=== PATIENT | female | born 1995 | race Caucasian/White ===

== ENCOUNTER 2022-08-25 12:28 | Emergency (ER) | payer OTHER, SELFPAY ==
--- NOTE | ~2022-08-25 | XR_ITS ---
EXAMINATION: XR foot RT min 3V DATE: 08/25/2022 13:29 INDICATION: Fifth metatarsal pain TECHNIQUE: Dorsoplantar, lateral, and 2 oblique views of the right foot were obtained. COMPARISON: None. FINDINGS: Ankle fractures are described on the ankle radiograph report. No fracture, dislocation, or subluxation identified in the foot. IMPRESSION: 1. No acute osseous abnormality of the foot. Ankle fractures described separately. Reviewed, dictated and finalized at location A. IMPRESSION: 1. No acute osseous abnormality of the foot. Ankle fractures described separate ly.
--- NOTE | ~2022-08-25 | XR_ITS ---
EXAMINATION: XR ankle RT min 3V INDICATION: Right ankle pain, initial encounter TECHNIQUE: Four views of the right ankle are obtained. COMPARISON: 05/16/2011 FINDINGS: There is an acute, traumatic, closed, oblique fracture of the distal fibula above the tibia l plafond. There is widening of the distal tibiofibular joint with an avulsion fracture seen situated between the distal tibia and fibula. There are an oblique fracture of the medial malleolus. There is widening of the tibiotalar joint between the medial malleolus and the talus. There appears to be a p osterior malleolus fracture tibia. Soft tissue swelling surrounds the fractures. IMPRESSION: 1. Probable trimalleolar fracture/dislocation ankle. Reviewed, dictated and finalized at location A.
[2022-08-25 12:31] VITALS: BP 146/89; PULSE 120; RESP 16; TEMP 36.4; O2SAT 100
[2022-08-25] MEDS: HYDROcodone/acetaminophen (*CRX) 5-325 MG TABLET 1 TAB PO (13:32)
--- NOTE | 2022-08-25 14:30 | ED.LOWEXIN ---
HPI - Extremity Injury (Lower) General Chief Complaint: Extremity Injury, Lower Stated Complaint: right ankle pain Time Seen by Provider: 08/25/22 12:39 History of Present Illness HPI Narrative: Patient is a 27-year-old female who presents ER with right ankle pain. She stepped off a curb and twisted her ankle. Unable to bear weight since then last night. Has developed some tingling. No additional injury. Related Data Allergies Allergy/AdvReac Type Severity Reaction Status Date / Time No Known Allergies Allergy Mild Verified 08/25/22 12:29 Review of Systems Musculoskeletal: Musculoskeletal: Denies myalgias, Reports arthralgias and Reports joint swelling Integumentary/Breasts: Skin/Breast: Denies rash and Denies skin ulcer Comments: Abrasion Neurologic: Denies syncope, Denies numbness and Denies weakness Comments: Right foot tingling PMFSH Past Medical History Medical History (Updated 08/25/22 @ 14:31 by Luis Lock MD) Anxiety BMI 32.0-32.9,adult Encounter to establish care Tension type headache Vitamin D deficiency Family History Family History (Updated 02/05/22 @ 10:49 by DOMINICK Moran) Father Hypertension Grandparent Hypertension Sibling Depression Anxiety Other Cerebrovascular accident Social History Social History (Updated 02/05/22 @ 11:04 by DOMINICK Moran) Smoking status: Never smoker Alcohol intake: current Drinks per week: 2 Alcohol use details: Seltzers every other weekend Substance use: current Substance use type: marijuana Exam Narrative: GENERAL: Well-appearing, well-nourished, and in no acute distress. HEAD: Normocephalic, atraumatic. HEART: Regular rate and rhythm. Normal peripheral pulses. EXTREMITIES: Swelling of the right ankle laterally and medially with tenderness with palpation limited range of motion due to pain. Also tenderness to the right fifth metatarsal. Pulses intact. Normal sharp and soft touch sensation of the right foot. Normal range of motion at the knee on the right side where there is overlying abrasion and no tenderness over the fibular head. SKIN: Warm, dry, no rash. NEURO: Alert and oriented x3. PSYCH: Normal mood and affect. Course Course Emergency Course: Patient resting comfortably. Informed of results. Splinted. Discussed case with on-call orthopedic surgery who will see patient. Nonweightbearing with crutches. Vital Signs Vital signs: Vital Signs Temperature 97.6 F 08/25/22 12:31 Pulse Rate 120 H 08/25/22 12:31 Respiratory Rate 16 08/25/22 12:31 Blood Pressure 146/89 H 08/25/22 12:31 Pulse Oximetry 100 08/25/22 12:31 Oxygen Delivery Room Air 08/25/22 12:31 Temperature 97.6 F 08/25/22 12:31 Pulse Rate 120 H 08/25/22 12:31 Respiratory Rate 16 08/25/22 12:31 Blood Pressure 146/89 H 08/25/22 12:31 Pulse Oximetry 100 08/25/22 12:31 Oxygen Delivery Room Air 08/25/22 12:31 MDM - Extremity Injury (Lower) Imaging Data Radiologist's impression: ITS Impressions Ankle X-Ray 08/25/22 13:10 IMPRESSION: 1. Probable trimalleolar fracture/dislocation ankle. Foot X-Ray 08/25/22 13:31 IMPRESSION: 1. No acute osseous abnormality of the foot. Ankle fractures described separately. Discharge Plan Discharge Clinical Impression: Closed trimalleolar fracture of right ankle Patient Disposition: Home, Self-Care Condition: Stable Instructions: Ankle Fracture (ED) Additional Instructions: Return the ER if your foot is cold and blue, you have increased pain, you have additional concerns. Elevate your leg. Follow-up with orthopedic surgery as you will likely require an operation. Take Tylenol with hydrocodone for pain. Prescriptions: New hydrocodone-acetaminophen 5-325 mg tablet 1 tablet PO Q6H PRN (Reason: pain) Qty: 20 0RF No Action venlafaxine 150 mg tablet extended release 24hr 150 mg PO DAILY Qty: 30 11RF ergoc
== END 2022-08-25 14:47 | disposition home or self-care (01) ==
PROVIDERS: Emergency Provider Emergency Medicine; PCP Nurse Practitioner Family
DX: S82.851A Displaced trimalleolar fracture of right lower leg, initial encounter for closed fracture (principal); F41.9 Anxiety disorder, unspecified; X50.0XXA Overexertion from strenuous movement or load, initial encounter
CPT/HCPCS: 29515; 73610; 73630; 99284; A9270

== ENCOUNTER 2022-08-30 00:54 | Day surgery (SDC) | payer OTHER, SELFPAY ==
[2022-08-27 11:29] VITALS: BMI 30.9
--- NOTE | 2022-08-27 11:35 | PC.NURSE ---
Report to the Outpatient Waiting Room, entrance under the green pavilion located off [facility], at time 0830 on date 08/30/22. Planned Procedure Time: 1030. Time changes happen often and if your time is changed the preop area will call you the afternoon before. - You and your visitor will be asked to self-screen and do not enter if you have any COVID symptoms. - A mask is optional within the hospital at this time. Patients may have clear liquids (water, carbonated beverages, clear teas, apple juice) until 3 hours prior to surgery with a maximum of 20 ounces. - No food from midnight until time of surgery Take the following medications with a SIP of water the morning of surgery: VENLAFAXINE, PAIN PILL IF NEEDED DO NOT STOP ANY OF YOUR OTHER PRESCRIPTION MEDICATIONS PRIOR TO SURGERY EXCEPT THE FOLLOWING Medications to discontinue per physician: VITAMIN Date to take last dose: NO MORE UNTIL AFTER SURGERY Please no make-up, nail gabonese, hairspray, perfume, deodorant, or body powder the day of surgery. No jewelry (including any body piercings) or valuables the day of surgery, leave them at home. Please take a shower or bath the night before, or the morning of, surgery with an antibacterial soap. Wear comfortable, loose fitting clothing. - Jewelry must be removed prior to entering the operating room. Rings and piercings that are not removed may be cut off. - The hospital will not accept responsibility for valuables. - Please leave all valuables, including medications, at home the day of surgery. If you are going home after surgery, a licensed ready mix truck driver must drive you home. - NO public transportation without another adult if you receive anesthesia. - We recommend that an adult stay with you for 24 hours following discharge. - We also recommend that you do not drive, make important decision, drink alcoholic beverages, or take any drugs that were not prescribed by your health care provider for at least 24 hours after your discharge time. Follow any additional instructions given to you from your surgeon. If you or anyone in your household have experienced Covid symptoms in the past week, please notify your surgeon or the nurse liaison at the phone number below for possible testing. Telephone instructions given to PT - PATRICIA MCCOY and asked if any additional questions and then verbalized understanding. Patient advised to call surgeon office or pre surgery nurse liaison [phone] if any additional questions.
[2022-08-30] VITALS (9 sets, daily range): BP systolic 128–161; BP diastolic 74–103; PULSE 86–115; RESP 14–16; TEMP 36–36.5; O2SAT 93–99
--- NOTE | ~2022-08-30 | XR_ITS ---
EXAMINATION: XR surgery orthopedic DATE: 08/30/2022 13:12 INDICATION: ORIF right ankle fracture TECHNIQUE: 3 fluoroscopic images of the right ankle were obtained during procedure performed by Dr. Aldo li. Radiologist was not present for the imaging or procedure. The amount of fluoroscopy time used during this procedure was 10.1 minutes. COMPARISON: 08/29/2022 FINDINGS: Interval open reduction internal fixation of the right ankle bimalleolar fracture. The fibular fractu re is fixed with interfragmentary screw and lateral plate and screws. The medial malleolar fractures fixed with a pair of cannulated lag screws. Finally there were small metallic buttons at the medial a nd lateral sides of a lucent tunnel extending across the metaphyseal regions of the distal tibia and fibula for a tightrope type syndesmotic fixation. Alignment appears near-anatomic with a congruent an kle mortise. No other fractures identified. Joint spaces appear normal. Expected small amount of post operative gas in the soft tissues and ankle and subtalar joint spaces. IMPRESSION: 1. Near-anatomic alignment post internal fixation of a bimalleolar fracture of the right ankle which includes a distal tibia fibular syndesmotic fixation. Reviewed, dictated and finalized at location A.
--- NOTE | 2022-08-30 09:25 | P.PNAN_ITS ---
Anes - Initial Pre Proc Eval Procedure: Operation Date: 08/30/22 10:30 Proposed Procedures p Open Reduction Internal Fixation Right Ankle - Mj Clement MD Date/Time: 08/30/22 09:25 Surgeon: Mj Clement MD Pre Op Diagnosis: right ankle fx Patient Data Age: 27 Gender: F Height: 1.63 m Weight: 81.65 kg Allergies Allergy/AdvReac Type Severity Reaction Status Date / Time No Known Allergies Allergy Mild Verified 08/29/22 12:55 Home Medications Medication Instructions Recorded Confirmed Type ergocalciferol (vitamin D2) 1,250 1,250 mcg PO WEEKLY #12 caps 06/05/22 08/27/22 Rx mcg (50,000 unit) capsule venlafaxine 150 mg tablet,extended 150 mg PO DAILY #30 tabs 06/05/22 08/27/22 Rx release 24 hr hydrocodone 5 mg-acetaminophen 325 1 tablet PO Q6H PRN pain #20 tabs 08/25/22 08/27/22 Rx mg tablet Patient hx anesthesia problems: none Family hx anesthesia problems: none Results Review: All pre-operative results and documents have been reviewed as part of the pre- operative evaluation. [facility] Past Medical History Medical History Anxiety BMI 32.0-32.9,adult Encounter to establish care Tension type headache Vitamin D deficiency Surgical History Surgical History (Updated 08/30/22 @ 09:25 by Zachery Clements MD) S/P wisdom tooth extraction Family History Family History Father Hypertension Grandparent Hypertension Sibling Depression Anxiety Other Cerebrovascular accident Social History Social History (Updated 08/29/22 @ 13:01 by Angi Benson MA) Smoking status: Never smoker Alcohol intake: current Drinks per week: 5 Alcohol use details: Seltzers every other weekend Substance use: current Substance use type: marijuana Living arrangements: with family Occupation/Education: occupation 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 Informed Consent: The patient's anesthetic plan and its attendant risks and benefits were discussed with the patient/family/POA. Questions were solicited and answers provided to the satisfaction of the patient/family/POA.
[2022-08-30] MEDS: ACETAMINOPHEN 500 MG TABLET 1000 MG PO (10:00)
[2022-08-30] MEDS: CELECOXIB 200 MG CAPSULE PO (10:00)
[2022-08-30] MEDS: LACTATED RINGERS 1,000 ML 30 ML IV CONT ×2 (10:00→13:39)
--- NOTE | 2022-08-30 10:59 | WPDHPUPDATE1 ---
History and Physical Update Update Date/Time: 08/30/22 10:59 History and Physical has been reviewed, including an updated exam of the patient. There are NO changes in the patient's condition. Risks, benefits, and alternatives have been discussed and questions answered. Patient agrees to proceed with procedure.
--- NOTE | 2022-08-30 11:11 | WPDANESPNB ---
Anes - Peripheral Nerve Block Date/Time: 08/30/22 11:11 I have discussed with the patient/family/POA the placement of a peripheral nerve block for post-operative pain management, including associated risks, benefits, complications, and side effects. Alternative methods of post-operative analgesia were detailed. Questions were solicited and answers provided to the satisfaction of the patient/family/POA. Time-Out: A pre-procedural Time-Out was completed immediately before starting the procedure and confirmed: Patient Identification, Site, Procedure, Patient Position and the Availability of Requisite Equipment. Clinical Indications: Acute post-operative pain management requested by the operative surgeon. Nerve Block Insertion Note Anes-nerve block: posterior fossa sciatic right Patient position: supine Skin prep: chlorhexidine Needle: 22 gauge, stimulating, insulated echogenic needle. Needle length: 80 mm Technique: nerve stimulation lost at (mA) (0.35) Injectate: bupivacaine 0.5% with epi 5 mcg/ml (20cc no epi) and dexamethasone (mg) (4) Observations: tolerated well Complications: none Procedure start time:: 1105 Procedure end time:: 111
[2022-08-30] MEDS: ceFAZolin 2 GM/D5W 50 ML 2 GM/50 ML BAG IVPB (11:15)
[2022-08-30] MEDS: BUPivacaine HCL 0.5% PF 30 ML VIAL INFILTRATE (11:21)
--- NOTE | 2022-08-30 13:58 | W.PM.PROC2 ---
Procedure Note - Detailed Date of Procedure 08/30/22 Pre-op Diagnosis right bi malleolar ankle fx Post-op Diagnosis Same Procedure Performed ORIF RIGHT LATERAL MALLEOLUS FRACTURE Surgeon Mj Clement MD Anesthesia General Description of Procedure THE PATIENT WAS TAKEN TO THE OR AND PLACED UNDER GENERAL ANESTHESIA. THE RIGHT LOWER EXTREMITY WAS PREPPED AND DRAPED IN THE USUAL STERILE FASHION. THE SKIN AROUND THE ANKLE HAD NO SIGNIFICANT LESIONS OR BLISTERING. THE TOURNIQUET WAS INFLATED. AN INCISION WAS MADE OVER THE LATERAL ASPECT OF THE DISTAL LEG AND ANKLE DOWN THROUGH THE SUBCUTANEOUS TISSUES. THE SUPERFICIAL PERONEAL NERVE WAS IDENTIFIED AND PRESERVED. DISSECTION CONTINUED UNTIL THE FRACTURE WAS VISUALIZED. THE FRACTURED WAS REDUCED TO ANATOMIC POSITION AND A LAG SCREW WAS PLACED TO MAINTAIN REDUCTION. NEXT A 6 HOLE ARTHREX PLATE WAS PLACED BRIDGING THE FRACTURE FRACTURE FRAGMENTS AND ATTACHED WITH MULTIPLE SCREWS MAINTAINING THE FRACTURE IN ANATOMIC POSITION. THE ANKLE WAS VISUALIZED UNDER FLUOROSCOPY AND FOUND TO BE STABLE WITH HARDWARE IN GOOD POSITION AND FRACTURE REDUCED. NEXT THE MEDIAL MALLEOLUS WAS VISUALIZED AGAIN AND FOUND TO HAVE A NON DISPLACED FRACTURE THROUGH THE MAIN BODY. INCISION WAS MADE OVER THE MEDIAL MALLEOLUS AND 2 4.0 CANNULATED SCREWS MEASURING 40 MM WERE PLACED BRIDGING THE FRACTURE. C-ARM XRAYS SHOWED THAT THE HARDWARE WAS IN GOOD POSITION FLUOROSCOPY WAS PREFORMED SHOWING THAT THE SYNDESMOSIS WAS REDUCED. NEXT A TIGHT ROPE SYSTEM WAS USED FIXATION FOR THE SYNDESMOSIS WHICH WAS PLACED THROUGH THE PLATE UNTIL IT REACHED 3 CORTICES. THE TIGHT ROPE WAS TIGHTENED UNTIL IT WAS SECURED ON BOTH THE MEDIAL CORTEX OF THE TIBIA AND LATERAL EDGE OF THE PLATE. C-ARM XRAYS SHOWED GOOD POSITION OF HARDWARE AND FRACTURE FRAGMENTS. THE WOUND WAS WASHED WITH STERILE WATER. THE DEEP LAYERS WERE APPROXIMATED WITH 2-0 VICRYL, THE SUBCUTANEOUS LAYER WAS APPROXIMATED WITH 3-0 VICRYL AND THE SKIN WITH PAWEL. THE WOUNDS WERE WASHED AGAIN AND PLACED IN A STERILE DRESSING THEN A PLASTER ADRIÁN BOATENG SPLINT WAS APPLIED. THE PATIENT WAS EXTUBATED AND SENT TO THE RECOVERY ROOM. Estimated Blood Loss -10.0 Complications No immediate complications Condition Stable Disposition PACU
== END 2022-08-30 16:20 | disposition home health service (06) ==
PROVIDERS: PCP Nurse Practitioner Family; Visit Provider Orthopaedic Surgery
PROC: (CPT 27814; principal; 2022-08-30 10:30)
DX: S82.841A Displaced bimalleolar fracture of right lower leg, initial encounter for closed fracture (principal); G89.18 Other acute postprocedural pain; X50.0XXA Overexertion from strenuous movement or load, initial encounter; F41.9 Anxiety disorder, unspecified; E55.9 Vitamin D deficiency, unspecified; F12.90 Cannabis use, unspecified, uncomplicated; E66.9 Obesity, unspecified; Z68.32 Body mass index [BMI] 32.0-32.9, adult
CPT/HCPCS: 27814; 27829; 64445; 99199; A9270; C1713; C1769; J0690; J1100; J1170; J2250; J2405; J2704; J2765; J3010; J7120

== ENCOUNTER 2023-10-05 19:38 | Emergency (ER) | payer MEDICAID, SELFPAY ==
[2023-10-05 19:45] VITALS: BP 135/94; PULSE 82; RESP 16; TEMP 36.6; O2SAT 98
--- NOTE | 2023-10-05 19:46 | ED.WOUNDLAC ---
HPI - Wound/Laceration General Chief Complaint: Wound/Laceration Stated Complaint: Left Hand Laceration Time Seen by Provider: 10/05/23 19:46 Source: patient, RN notes reviewed and old records reviewed Mode of arrival: ambulatory Limitations: no limitations History of Present Illness HPI narrative: 28-year-old female presents to the [facility] with a laceration to the left hand at the base of the 2nd finger right near the webbing. States that she was cutting a piece so when she cut her hand. Bleeding is controlled. last tDap Patient tetanus UTD: Yes (01/30) Related Data Allergies Allergy/AdvReac Type Severity Reaction Status Date / Time No Known Allergies Allergy Mild Verified 10/05/23 19:38 Review of Systems Review of Systems: All systems reviewed & are unremarkable except as noted in HPI and below Constitutional: Constitutional: Reports no additional constitutional complaints Eyes: Eyes: Reports no additional eye complaints ENT: Reports system reviewed and no additional complaints, except as documented Cardiovascular: Cardiovascular: Reports no additional cardiovascular complaints, Denies chest pain and Denies dyspnea Respiratory: Respiratory: Reports no additional respiratory complaints, Denies chest congestion, Denies cough and Denies dyspnea Gastrointestinal: Gastrointestinal: Reports no additional gastrointestinal complaints, Denies abdominal pain, Denies nausea and Denies vomiting Musculoskeletal: Musculoskeletal: Reports no additional musculoskeletal complaints Integumentary/Breasts: Skin/Breast: Reports as per HPI Neurologic: Reports system reviewed and no additional complaints, except as documented Psychiatric: Psychiatric: Reports no additional psychiatric complaints Allergic/Immunologic: Allergic/Immunologic: Reports no additional allergic/immunologic complaints PMFSH Past Medical History Medical History Anxiety Bimalleolar fracture of right ankle BMI 32.0-32.9,adult Encounter to establish care Intractable right heel pain Pain of right heel Plantar fasciitis Right foot pain Tension type headache Vitamin D deficiency Surgical History Surgical History S/P wisdom tooth extraction Status post open reduction with internal fixation (ORIF) of fracture of ankle 08/30/2022 Family History Family History Father Hypertension Grandparent Hypertension Sibling Depression Anxiety Other Cerebrovascular accident Unknown Arthritis Heart disease Social History Social History Smoking status: Never smoker Alcohol intake: current Drinks per week: 5 Alcohol use details: Seltzers every other weekend Substance use: current Substance use type: marijuana Living arrangements: with family Occupation/Education: occupation 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 There is no relevant family history pertinent to the patient complaint. Exam Const: General: cooperative, healthy appearing, comfortable, no acute distress, well developed, alert and well nourished Nutritional Appearance: well nourished Orientation/consciousness: patient oriented x3 Limitations: no limitations HENMT: Head: normal to inspection Ears: hearing grossly normal bilaterally and external ears normal Face/Nose/Sinus: Normal external nose present, Normal nares present, Normal nasal mucous membranes and turbinates present, normal facial exam and face symmetric Face a
[2023-10-05] MEDS: LIDOCAINE HCL 1% LOCAL INJ 2 ML AMPUL 4 ML INFILTRATE (19:55)
== END 2023-10-05 20:20 | disposition home or self-care (01) ==
PROVIDERS: Emergency Provider Nurse Practitioner; PCP Nurse Practitioner Family
DX: S61.412A Laceration without foreign body of left hand, initial encounter (principal); W45.8XXA Other foreign body or object entering through skin, initial encounter
CPT/HCPCS: 12001; 99212; G0463

== ENCOUNTER 2023-10-15 08:23 | Emergency (ER) | payer OTHER, SELFPAY ==
[2023-10-15 08:33] VITALS: BP 137/85; PULSE 86; RESP 16; TEMP 36.4; O2SAT 98
--- NOTE | 2023-10-15 08:46 | ED.WOUNDLAC ---
HPI - Wound/Laceration General Chief Complaint: Wound/Laceration Stated Complaint: suture removal Time Seen by Provider: 10/15/23 08:46 Source: patient Mode of arrival: ambulatory Limitations: no limitations History of Present Illness HPI narrative: Jessika is a 28-year-old female patient presenting to the emergency room for suture removal to the left hand. She reports she had sutures placed here 10 days ago for a laceration in the webbing of her left hand between her thumb and index finger. No concerns at this time. Related Data Allergies Allergy/AdvReac Type Severity Reaction Status Date / Time No Known Allergies Allergy Mild Verified 10/05/23 19:38 Review of Systems Review of Systems: Pertinent positives per HPI. Patient denies any fever, chills, rash, headache, visual changes, dizziness, cough, runny nose, sore throat, shortness of breath, chest pain, palpitations, nausea, vomiting, diarrhea, constipation, abdominal pain, or any urinary issues. PMF Past Medical History Medical History Anxiety Bimalleolar fracture of right ankle BMI 32.0-32.9,adult Encounter to establish care Intractable right heel pain Pain of right heel Plantar fasciitis Right foot pain Tension type headache Vitamin D deficiency Surgical History Surgical History S/P wisdom tooth extraction Status post open reduction with internal fixation (ORIF) of fracture of ankle 08/30/2022 Family History Family History Father Hypertension Grandparent Hypertension Sibling Depression Anxiety Other Cerebrovascular accident Unknown Arthritis Heart disease Social History Social History Smoking status: Never smoker Alcohol intake: current Drinks per week: 5 Alcohol use details: Seltzers every other weekend Substance use: current Substance use type: marijuana Living arrangements: with family Occupation/Education: occupation 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 There is no relevant family history pertinent to the patient complaint. Exam Narrative: General: Well-developed, well nourished, in no apparent distress Head: Normocephalic, atraumatic. Cardio: Regular rate and rhythm, s1 and s2 normal, no murmur appreciated. Resp: Clear to auscultation bilaterally, no rhonchi, rales, wheezing or rubs. Integumentary: [place], warm, and dry, 3 sutures were removed and wound slightly dehisced. Will place Steri-Strips. Course Course Emergency Course: Portions of this record may have been created with voice recognition software. Level of Care: Express Care Visit Vital Signs Vital signs: Vital Signs Temperature 36.4 C 10/15/23 08:33 Pulse Rate 86 10/15/23 08:33 Respiratory Rate 16 10/15/23 08:33 Blood Pressure 137/85 10/15/23 08:33 Pulse Oximetry 98 10/15/23 08:33 Oxygen Delivery Room Air 10/15/23 08:33 Temperature 36.4 C 10/15/23 08:33 Pulse Rate 86 10/15/23 08:33 Respiratory Rate 16 10/15/23 08:33 Blood Pressure 137/85 10/15/23 08:33 Pulse Oximetry 98 10/15/23 08:33 Oxygen Delivery Room Air 10/15/23 08:33 Vital signs reviewed MDM - Wound/Laceration MDM Narrative Medical decision making narrative: At the time of visit patient is resting comfortably on the exam table. Patient appears to be nontoxic. Procedures: Steri-Strips were placed over wound to bring wound edges well approximate. Plan: St
== END 2023-10-15 08:58 | disposition home or self-care (01) ==
PROVIDERS: Emergency Provider Nurse Practitioner Family
DX: S61.412D Laceration without foreign body of left hand, subsequent encounter (principal); X58.XXXD Exposure to other specified factors, subsequent encounter; F12.90 Cannabis use, unspecified, uncomplicated
CPT/HCPCS: 99211; G0463